=== PATIENT | female | born 1975 | race Caucasian/White ===

== ENCOUNTER → 2020-06-30 | Outpatient (CLI) | payer BC ==
[2020-06-30 11:55] LABS: Basophils % (A) 1 %; Eosinophils # (A) 0.2 k/uL (0-0.7); Eosinophils % (A) 2 %; HGB 12.5 gm/dL (11.4-16.0); Lymphocytes # (A) 2.2 k/uL (1.0-4.8); Lymphocytes % (A) 27 %; MCH 26.2 pg (25.0-35.0); MCHC 31.3 g/dL (31.0-37.0); MCV 83.7 fL (80.0-100.0); Mean Platelet Volume 7.4; Monocytes # (A) 0.4 k/uL (0-1.0); Monocytes % (A) 5 %; Neutrophils # (A) 5.4 k/uL (1.3-7.7); Neutrophils % (A) 64 %; Platelet Count 307 k/uL (150-450); RBC 4.78 m/uL (3.80-5.40); RDW 13.4 % (11.5-15.5); WBC 8.4 k/uL (3.8-10.6)
[2020-06-30 22:24] LABS: African American GFR (CKD) 120.4 (60.0-200.0); Albumin 4.4 g/dL (3.80-4.90); Albumin/Globulin Ratio 1.91 (1.60-3.17); BUN/Creat Ratio 15.71 Ratio (12.00-20.00); Calcium 9.4 mg/dL (8.7-10.3); Chol/HDL Ratio 3.92; Globulin 2.3 g/dL (1.6-3.3); LDL Cholesterol,Calculated 86.4 mg/dL (0.0-131.0); Non-African American GFR(CKD) 103.9 (60.0-200.0); Potassium 4.5 mmol/L (3.5-5.5); Total Bilirubin 0.3 mg/dL (0.2-1.2); Total Protein 6.7 g/dL (6.2-8.2); VLDL Calculation 27.6 mg/dL (5.00-40.00)
== END | disposition home or self-care (01) ==
LOC: LABWHC1 10:13
PROVIDERS: ATTEND Internal Medicine Cardiovascular Disease
DX: I10 Essential (primary) hypertension (principal); R06.02 Shortness of breath; R00.2 Palpitations
CPT/HCPCS: 36415; 80053; 80061; 83880; 84439; 84443; 85025

== ENCOUNTER → 2022-07-07 | Outpatient (CLI) | payer BC ==
[2022-07-07 18:38] LABS: ALT 18 U/L (8-44); AST 19 U/L (13-35); African American GFR (CKD) 120.4 (60.0-200.0); Albumin/Globulin Ratio 1.19 (1.60-3.17); Alkaline Phosphatase 132 U/L (41-126); BUN/Creat Ratio 20.42 Ratio (12.00-20.00); Blood Urea Nitrogen 13.7 mg/dL (9.0-27.0); Calcium 9.3 mg/dL (8.7-10.3); Carbon Dioxide 25.4 mmol/L (20.0-27.5); Chloride 101 mmol/L (96-109); Chol/HDL Ratio 4.56 Ratio; Globulin 3.4 g/dL (1.6-3.3); Glucose 203 mg/dL (70-110); LDL Cholesterol,Calculated 93.2 mg/dL (0.0-131.0); Non-African American GFR(CKD) 103.9 (60.0-200.0); Potassium 3.6 mmol/L (3.5-5.5); Sodium 137 mmol/L (135-145); Total Protein 7.3 g/dL (6.2-8.2)
== END | disposition home or self-care (01) ==
LOC: LABWHC1 10:57
PROVIDERS: ATTEND Internal Medicine Clinical Cardiac Electrophysiology
DX: I10 Essential (primary) hypertension (principal); E78.6 Lipoprotein deficiency
CPT/HCPCS: 36415; 80053; 80061; 83036; 84443

== ENCOUNTER 2022-08-11 10:26 | Inpatient (IN) | payer BC ==
--- NOTE | 2022-08-11 11:10 | ED ---
General Adult HPI - General Chief complaint: Chest Pain Stated complaint: chest pain, SOB Time Seen by Provider: 08/11/22 10:47 Source: patient, RN notes reviewed Mode of arrival: ambulatory Limitations: no limitations - History of Present Illness Initial comments: Patient is a pleasant 46-year-old female presenting to the emergency Department with chest discomfort and shortness of breath. Symptoms started just a few days ago. Patient does have cough that just started recently with mild chest congestion. Patient has been having discomfort the past couple of days. Discomfort is a proximally 6/10. Discomfort has somewhat worsened. Discomfort feels like an ache, right of midline. Patient does see cardiology for history of hypertension. No history of cardiac disease. Patient states her blood pressure has been labile at home. - Related Data Allergies Allergy/AdvReac Type Severity Reaction Status Date / Time No Known Allergies Allergy Verified 08/11/22 10:44 Review of Systems ROS Statement: Those systems with pertinent positive or pertinent negative responses have been documented in the HPI. ROS Other: All systems not noted in ROS Statement are negative. Constitutional: Denies: fever Eyes: Denies: eye pain ENT: Denies: ear pain Respiratory: Reports: as per HPI, cough, dyspnea Cardiovascular: Reports: as per HPI, chest pain Endocrine: Reports: fatigue Gastrointestinal: Denies: abdominal pain Genitourinary: Denies: dysuria Musculoskeletal: Denies: back pain Skin: Denies: rash Neurological: Denies: weakness Past Medical History Past Medical History: Diabetes Mellitus History of Any Multi-Drug Resistant Organisms: None Reported Past Surgical History: No Surgical Hx Reported Past Psychological History: No Psychological Hx Reported Smoking Status: Never smoker Past Alcohol Use History: None Reported Past Drug Use History: None Reported General Exam Limitations: no limitations General appearance: alert, in no apparent distress Head exam: Present: normocephalic Eye exam: Present: normal appearance Respiratory exam: Present: rales (Right-sided). Absent: chest wall tenderness Cardiovascular Exam: Present: regular rate, normal rhythm Expanded Peripheral pulses: 2+: Radial (R), Radial (L), Posterior Tibialis (R), Posterior Tibialis (L) GI/Abdominal exam: Present: soft. Absent: tenderness Extremities exam: Present: normal inspection. Absent: pedal edema, calf tenderness Neurological exam: Present: alert Psychiatric exam: Present: normal affect, normal mood Skin exam: Present: normal color Course Vital Signs 11/11/22 11/11/22 11/11/22 10:41 11:00 11:51 Temperature 97.4 F L Pulse Rate 96 92 92 Pulse Rate [ 92 Plastic Mixer ] Respiratory 22 20 22 Rate Blood Pressure 75/54 76/41 81/45 O2 Sat by Pulse 97 95 Oximetry - Reevaluation(s) Reevaluation #1: 08/11/22 13:06 Patient does meet criteria for severe sepsis diagnosed at 1300. Blood culture and lactic acid and IV antibiotics have all been ordered. EKG Findings - EKG Comments: EKG Findings:: Sinus rhythm rate 90. TN 134. QRS 104. QT 349. QTC 397. Normal axis. Low QRS voltage. No acute ST change. Medical Decision Making - Medical Decision Making Patient reevaluated and updated. Case was discussed in detail with Dr. Fernández, who will admit covering Dr. Dukes. - Lab Data Result diagrams: 08/11/22 11:18 08/11/22 11:18 Lab Results 08/11/22 08/11/22 08/11/22 Range/Units 11:18 11:18 11:18 WBC 23.7 H (3.8-10.6) k/uL RBC 4.37 (3.80-5.40) m/uL Hgb 12.1 (11.4-16.0) gm/dL Hct 36.1 (34.0-46.0) % MCV 82.6 (80.0-100.0) fL MCH 27.7 (25.0-35.0) pg MCHC 33.5 (31.0-37.0) g/dL RDW 13.1 (11.5-15.5) % Plt Count 231 (150-450) k/uL MPV 9.0 PT 12.0 (9.0-12.0) sec INR 1.1 (<1.2) APTT 28.4 (22.0-30.0) sec D-Dimer 3.08 H (<0.60) mg/L FEU Sodium 134 L (137-145) mmol/L Potassium 3.8 (3.5-5.1) mmol/L Chloride 100 (98-107) mmol/L Carbon Dioxide 22 (22-30) mmol/L Anion Gap 12 mmol/L BUN 41 H (7-17) mg/dL Creatinine 2.04 H (0.52-1.04) mg/dL Est GFR (CKD-EPI)AfAm 33 (>60 ml/min/1.73 sqM) Est GFR (CKD-EPI)NonAf 28 (>60 ml/min/1.73 sqM) Glucose 167 H (74-99) mg/dL Plasma Lactic Acid Aryan (0.7-2.0) mmol/L Calcium 7.9 L (8.4-10.2) mg/dL Magnesium 1.1 L (1.6-2.3) mg/dL Total Bilirubin 0.7 (0.2-1.3) mg/dL AST 27 (14-36) U/L ALT 27 (4-34) U/L Alkaline Phosphatase 171 H (38-126) U/L Troponin I (0.000-0.034) ng/mL NT-Pro-B Natriuret Pep pg/mL Total Protein 6.2 L (6.3-8.2) g/dL Albumin 3.4 L (3.5-5.0) g/dL Coronavirus (PCR) (Not Detectd) Influenza Type A RNA (Not Detectd) Influenza Type B (PCR) (Not Detectd) 08/11/22 08/11/22 08/11/22 Range/Units 11:18 11:18 11:18 WBC (3.8-10.6) k/uL RBC (3.80-5.40) m/uL Hgb (11.4-16.0) gm/dL Hct (34.0-46.0) % MCV (80.0-100.0) fL MCH (25.0-35.0) pg MCHC (31.0-37.0) g/dL RDW (11.5-15.5) % Plt Count (150-450) k/uL MPV PT (9.0-12.0) sec INR (<1.2) APTT (22.0-30.0) sec D-Dimer (<0.60) mg/L FEU Sodium (137-145) mmol/L Potassium (3.5-5.1) mmol/L Chloride (98-107) mmol/L Carbon Dioxide (22-30) mmol/L Anion Gap mmol/L BUN (7-17) mg/dL Creatinine (0.52-1.04) mg/dL Est GFR (CKD-EPI)AfAm (>60 ml/min/1.73 sqM) Est GFR (CKD-EPI)NonAf (>60 ml/min/1.73 sqM) Glucose (74-99) mg/dL Plasma Lactic Acid Aryan 3.0 H* (0.7-2.0) mmol/L Calcium (8.4-10.2) mg/dL Magnesium (1.6-2.3) mg/dL Total Bilirubin (0.2-1.3) mg/dL AST (14-36) U/L ALT (4-34) U/L Alkaline Phosphatase (38-126) U/L Troponin I <0.012 (0.000-0.034) ng/mL NT-Pro-B Natriuret Pep 1070 pg/mL Total Protein (6.3-8.2) g/dL Albumin (3.5-5.0) g/dL Coronavirus (PCR) (Not Detectd) Influenza Type A RNA (Not Detectd) Influenza Type B (PCR) (Not Detectd) 08/11/22 08/11/22 Range/Units 11:18 11:18 WBC (3.8-10.6) k/uL RBC (3.80-5.40) m/uL Hgb (11.4-16.0) gm/dL Hct (34.0-46.0) % MCV (80.0-100.0) fL MCH (25.0-35.0) pg MCHC (31.0-37.0) g/dL RDW (11.5-15.5) % Plt Count (150-450) k/uL MPV PT (9.0-12.0) sec INR (<1.2) APTT (22.0-30.0) sec D-Dimer (<0.60) mg/L FEU Sodium (137-145) mmol/L Potassium (3.5-5.1) mmol/L Chloride (98-107) mmol/L Carbon Dioxide (22-30) mmol/L Anion Gap mmol/L BUN (7-17) mg/dL Creatinine (0.52-1.04) mg/dL Est GFR (CKD-EPI)AfAm (>60 ml/min/1.73 sqM) Est GFR (CKD-EPI)NonAf (>60 ml/min/1.73 sqM) Glucose (74-99) mg/dL Plasma Lactic Acid Aryan (0.7-2.0) mmol/L Calcium (8.4-10.2) mg/dL Magnesium (1.6-2.3) mg/dL Total Bilirubin (0.2-1.3) mg/dL AST (14-36) U/L ALT (4-34) U/L Alkaline Phosphatase (38-126) U/L Troponin I (0.000-0.034) ng/mL NT-Pro-B Natriuret Pep pg/mL Total Protein (6.3-8.2) g/dL Albumin (3.5-5.0) g/dL Coronavirus (PCR) Not Detected (Not Detectd) Influenza Type A RNA Not Detected (Not Detectd) Influenza Type B (PCR) Not Detected (Not Detectd) - Radiology Data Radiology results: image reviewed (Chest x-ray read by myself reveals large right upper lobe infiltrate) Critical Care Time Critical Care Time: Yes Total Critical Care Time: 33 Disposition Clinical Impression: Pneumonia, Severe sepsis Disposition: ADMITTED IP TO THIS HOSP Is patient prescribed a controlled substance at d/c from ED?: No Referrals: Pedro Dukes MD [Primary Care Provider] - 1-2 days Time of Disposition: 13:08
[2022-08-11] MEDS: SODIUM CHLORIDE 0.9% 1,000 ML IV STA ×2 (11:15→11:57)
--- NOTE | 2022-08-11 11:44 | XR ---
EXAMINATION TYPE: XR chest 2V DATE OF EXAM: 08/11/2022 COMPARISON: NONE HISTORY: Chest pain TECHNIQUE: Frontal and lateral views of the chest are obtained. FINDINGS: Large right upper lobe infiltrate with air bronchograms. Correlate for pneumonia. Infiltrate of other etiology is not excluded and clinical correlation is advised as well as follow-up until resolution. No evidence for pneumothorax. No pleural effusion. The cardiac silhouette size is within normal limits. The osseous structures are grossly intact. IMPRESSION: 1. Large right upper lobe infiltrate with air bronchograms. Correlate for pneumonia. Infiltrate of o ther etiology is not excluded and clinical correlation is advised as well as follow-up until resoluti on.
[2022-08-11] MEDS ORDERED: SODIUM CHLORIDE 0.9% 2,000 ML IV STA (11:54)
[2022-08-11 12:21] LABS: Albumin 3.4 g/dL (3.5-5.0); Calcium 7.9 mg/dL (8.4-10.2); Magnesium 1.1 mg/dL (1.6-2.3); Potassium 3.8 mmol/L (3.5-5.1); Total Bilirubin 0.7 mg/dL (0.2-1.3); Total Protein 6.2 g/dL (6.3-8.2)
[2022-08-11 12:22] LABS: Basophils # (A) 0.1 k/uL (0-0.2); Basophils % (A) 0 %; Eosinophils # (A) 0.2 k/uL (0-0.7); Eosinophils % (A) 1 %; HCT 36.1 % (34.0-46.0); HGB 12.1 gm/dL (11.4-16.0); Lymphocytes # (A) 0.4 k/uL (1.0-4.8); Lymphocytes % (A) 2 %; MCH 27.7 pg (25.0-35.0); MCHC 33.5 g/dL (31.0-37.0); MCV 82.6 fL (80.0-100.0); Monocytes # (A) 0.4 k/uL (0-1.0); Monocytes % (A) 2 %; Neutrophils # (A) 22.6 k/uL (1.3-7.7); Neutrophils % (A) 96 %; Platelet Count 231 k/uL (150-450); RBC 4.37 m/uL (3.80-5.40); RDW 13.1 % (11.5-15.5); WBC 23.7 k/uL (3.8-10.6)
[2022-08-11 12:42] LABS: INR 1.1 (<1.2); Partial Thromboplastin Time 28.4 sec (22.0-30.0)
[2022-08-11] MEDS ORDERED: AZITHROMYCIN 500 MG in SODIUM CHLORIDE 0.9% 250 ML IVPB STA (13:09)
[2022-08-11] MEDS ORDERED: IPRATROPIUM-ALBUTEROL 3 ML NEB INHALATION PRN (13:09)
[2022-08-11] MEDS ORDERED: PNEUMONIA PROTOCOL UTILIZED 1 EACH MISC PO PRN (13:09)
[2022-08-11 13:16] LABS: RBC Morphology Normal
[2022-08-11 13:17] LABS: Toxic Vacuolation Present
[2022-08-11] MEDS: SODIUM CHLORIDE 0.9% 1,000 ML IV SCH ×2 (13:51→21:27)
[2022-08-11] MEDS ORDERED: TEMAZEPAM 15 MG CAP PO PRN (17:45)
[2022-08-11] MEDS ORDERED: NALOXONE 0.4 MG/ML 1 ML VIAL IV PRN (17:45)
[2022-08-11] MEDS ORDERED: CALCIUM CARBONATE 500 MG CHEWABLE PO PRN (17:45)
[2022-08-11] MEDS ORDERED: LACTULOSE 20 GM/30 ML CUP PO PRN (17:45)
[2022-08-11] MEDS ORDERED: ONDANSETRON 4 MG/2 ML VIAL IVP PRN (17:45)
[2022-08-11] MEDS ORDERED: LORazepam 0.5 MG TAB PO PRN (17:45)
[2022-08-11] MEDS ORDERED: DEXTROSE 50% SYRINGE 50 ML IVP PRN ×2 (17:46)
--- NOTE | 2022-08-11 17:48 | P.HPIM ---
History of Present Illness H&P Date: 08/11/22 Chief Complaint: Cough chill short of breath This is a pleasant 46-year-old patient who follows Dr. Dukes. Chronic stable medical conditions include diabetes, hypertension, depression. Patient stopped smoking 5 years ago. 2 days ago she started having pain in the chest after taking a deep breath. Progressively got worse. Became dizzy. Also started becoming short of breath. Started having significant cough but unable to expectorate. It became very short of breath. More chills. Presented to the ER. Wheezing. Unable to expectorate. No diarrhea. No muscle pain. No headaches. Nobody else sick around her. Tested negative for COVID and flu in the ER. Patient has not taken any vaccines for the same. Review of systems: GEN.: Chills decreased appetite tired EYES: None HEENT: None NECK: None RESPIRATORY: As above CARDIOVASCULAR: None GASTROINTESTINAL: None GENITOURINARY: None MUSCULOSKELETAL: None LYMPHATICS: None HEMATOLOGICAL: None PSYCHIATRY: None NEUROLOGICAL: None Past medical history to include: Diabetes, hypertension, depression Social history: Lives with her . Smoked a pack a day for 25 years stopped 5 years ago. . Works at [employer]. No alcohol. No drugs. Family history: Reviewed, noncontributory to presentation Physical examination: VITAL SIGNS: 97.4, 96, 22, 75 x 54, 97% room air GENERAL: BMI 38.4, reclining in bed, short of breath, congested cough. EYES: Pupils equal. Conjunctiva normal. HEENT: External appearance of nose and ears normal, oral cavity grossly normal. NECK: JVD not raised; masses not palpable. HEART: First and second heart sounds are normal; no edema. LUNGS: Respiratory rate increased, but able to speak in full sentences, accessory muscles of smoking, diminished breath sounds prolonged expiration cause crackles. ABDOMEN: Soft, nontender, liver spleen not palpable, no masses palpable. PSYCH: [Alert and oriented x3; mood and affect anxious l. MUSCULOSKELETAL:No Clubbing/cyanosis;muscles-grossly intact NEUROLOGICAL: Cranial nerves grossly intact; no facial asymmetry, power and sensation grossly intact. LYMPHATICS: No lymph nodes palpable in the axilla and neck INVESTIGATIONS, reviewed in the clinical context: White count 22.7 hemoglobin 12.1 platelets 231 sodium 134 percussion 3.8 BUN 41 creatinine 2.04 lactic acid 3 COVID 19 PCR/influenza type A/type B: Not detected EKG tracing personally reviewed by me-normal sinus rhythm. Chest x-ray film personally reviewed by me: Right upper lobar pneumonia Assessment and plan: -Acute severe right upper lobe pneumonia, suspect gram-negative organism, causing sepsis IV ceftriaxone -Sepsis from pneumonia IV fluids with IV ceftriaxone -Lactic acidosis from sepsis -Diabetes mellitus type 2, on oral hypoglycemic Hold metformin. Follow Accu-Cheks with sliding scale -Relative hypotension from sepsis. IV fluids -Essential hypertension, currently blood pressure running low Hold off antihypertensive. -Acute COPD exacerbation in an ex-smoker DuoNeb every 4, IV Solu-Medrol, nebulized Pulmicort -Obesity BMI 38.4 Weight loss measures IV ceftriaxone, IV fluids, hold metformin, Accu-Cheks and sliding scale, hold off antihypertensives, DuoNeb, IV Solu Medrol, nebulized Pulmicort. Subcu Lovenox. Care was discussed with the patient. Questions answered. Past Medical History Past Medical History: Diabetes Mellitus History of Any Multi-Drug Resistant Organisms: None Reported Past Surgical History: No Surgical Hx Reported Past Psychological History: No Psychological Hx Reported Smoking Status: Never smoker Past Alcohol Use History: None Reported Past Drug Use History: None Reported Medications and Allergies Home Medications Medication Instructions Recorded Confirmed Type Losartan-Hctz 50-12.5 mg [Hyzaar 1 tab PO DAILY@189908/11/22 08/11/22 History 50-12.5] Metoprolol Succinate (ER) [Toprol 25 mg PO DAILY@189908/11/22 08/11/22 History Xl] Phentermine HCl 37.5 mg PO DAILY@189908/11/22 08/11/22 History buPROPion XL [Wellbutrin XL] 300 mg PO DAILY@189908/11/22 08/11/22 History metFORMIN HCL ER [Glucophage XR] 1,000 mg PO DAILY@189908/11/22 08/11/22 History Allergies Allergy/AdvReac Type Severity Reaction Status Date / Time No Known Allergies Allergy Verified 08/11/22 14:23 Physical Exam Vitals: Vital Signs Temp Pulse Pulse Resp BP Pulse Ox 08/11/22 16:56 109 H 26 H 105/62 97 08/11/22 16:11 109 H 27 H 96/57 93 L 11/11/22 15:45 110 H 26 H 100/62 95 08/11/22 15:30 106 H 26 H 100/73 94 L 08/11/22 15:15 100 18 08/11/22 15:06 109 H 18 94 L 08/11/22 15:00 108 H 24 98/58 95 08/11/22 14:45 98.3 F 109 H 26 H 96/53 93 L 08/11/22 11:51 92 22 81/45 95 08/11/22 11:00 92 92 20 76/41 08/11/22 10:41 97.4 F L 96 22 75/54 97 Intake and Output 08/11/22 08/11/22 08/11/22 06:59 14:59 22:59 Other: Weight 98.43 kg Results CBC & Chem 7: 08/11/22 11:18 08/11/22 11:18 Labs: Abnormal Lab Results - Last 24 Hours (Table) 08/11/22 08/11/22 08/11/22 Range/Units 11:18 11:18 11:18 WBC 23.7 H (3.8-10.6) k/uL Neutrophils # 22.6 H (1.3-7.7) k/uL Lymphocytes # 0.4 L (1.0-4.8) k/uL D-Dimer 3.08 H (<0.60) mg/L FEU Sodium 134 L (137-145) mmol/L BUN 41 H (7-17) mg/dL Creatinine 2.04 H (0.52-1.04) mg/dL Glucose 167 H (74-99) mg/dL Plasma Lactic Acid Aryan (0.7-2.0) mmol/L Calcium 7.9 L (8.4-10.2) mg/dL Magnesium 1.1 L (1.6-2.3) mg/dL Alkaline Phosphatase 171 H (38-126) U/L Total Protein 6.2 L (6.3-8.2) g/dL Albumin 3.4 L (3.5-5.0) g/dL 08/11/22 Range/Units 11:18 WBC (3.8-10.6) k/uL Neutrophils # (1.3-7.7) k/uL Lymphocytes # (1.0-4.8) k/uL D-Dimer (<0.60) mg/L FEU Sodium (137-145) mmol/L BUN (7-17) mg/dL Creatinine (0.52-1.04) mg/dL Glucose (74-99) mg/dL Plasma Lactic Acid Aryan 3.0 H* (0.7-2.0) mmol/L Calcium (8.4-10.2) mg/dL Magnesium (1.6-2.3) mg/dL Alkaline Phosphatase (38-126) U/L Total Protein (6.3-8.2) g/dL Albumin (3.5-5.0) g/dL
[2022-08-11] MEDS: ENOXAPARIN 40 MG/0.4 ML SYRINGE SQ SCH (18:52)
[2022-08-11] MEDS: guaiFENesin 600 MG TABLET.ER PO SCH ×2 (18:52→21:27)
[2022-08-11] MEDS: METOPROLOL SUCCINATE (ER) 25 MG TAB.ER.24H PO SCH (18:52)
[2022-08-11] MEDS: buPROPion XL 300 MG TAB.ER.24H PO SCH (18:52)
[2022-08-11] MEDS: methylPREDNISolone SOD SUCCI 40 MG/ML 1 ML VIAL IV SCH (18:55)
[2022-08-11] MEDS ORDERED: NON FORMULARY DRUG (Phentermine Hcl [Phentermine Hcl] 37.5 MG Tablet) PO SCH (19:00)
[2022-08-11] MEDS: BUDESONIDE 1 MG/2 ML NEBU INHALATION SCH (19:10)
[2022-08-11] MEDS: IPRATROPIUM-ALBUTEROL 3 ML NEB INHALATION SCH ×2 (19:10→23:49)
[2022-08-11 20:17] LABS: Glucose,Whole Blood 177 mg/dL (70-110)
[2022-08-12] MEDS: methylPREDNISolone SOD SUCCI 40 MG/ML 1 ML VIAL IV SCH ×3 (00:18→15:22)
[2022-08-12] MEDS: IPRATROPIUM-ALBUTEROL 3 ML NEB INHALATION SCH ×6 (03:49→23:47)
[2022-08-12] MEDS: SODIUM CHLORIDE 0.9% 1,000 ML IV SCH ×4 (06:04→20:43)
[2022-08-12 06:12] LABS: Glucose,Whole Blood 280 mg/dL (70-110)
[2022-08-12] MEDS: INSULIN ASPART (NovoLOG) 100 UNIT/ML VIAL SQ SCH ×3 (06:34→16:50)
--- NOTE | 2022-08-12 07:09 | XR ---
EXAMINATION TYPE: XR chest 2V DATE OF EXAM: 08/12/2022 COMPARISON: 08/11/2022 HISTORY: Follow-up pneumonia TECHNIQUE: Frontal and lateral views of the chest are obtained. FINDINGS: Large right upper lobe airspace consolidation persists with air bronchograms. Findings likely reflect pneumonia. Follow-up until resolution is advised. No evidence for pneumothorax. No pleural effusion. The cardiac silhouette size is within normal limits. The osseous structures are grossly intact. IMPRESSION: 1. Large right upper lobe airspace consolidation persists with air bronchograms. Findings likely ref lect pneumonia. Follow-up until resolution is advised.
[2022-08-12 08:05] LABS: Basophils % (A) 0 %; Eosinophils % (A) 0 %; HCT 30.2 % (34.0-46.0); Hypochromasia Slight; Lymphocytes # (A) 0.5 k/uL (1.0-4.8); Lymphocytes % (A) 4 %; MCH 27.2 pg (25.0-35.0); MCHC 32.3 g/dL (31.0-37.0); MCV 84.3 fL (80.0-100.0); Mean Platelet Volume 9.4; Monocytes # (A) 0.3 k/uL (0-1.0); Monocytes % (A) 2 %; Neutrophils % (A) 92 %; Platelet Count 200 k/uL (150-450); RBC 3.59 m/uL (3.80-5.40); RDW 13.5 % (11.5-15.5); WBC 11.9 k/uL (3.8-10.6)
[2022-08-12 08:06] LABS: HGB 9.8 gm/dL (11.4-16.0)
[2022-08-12 08:17] LABS: Calcium 7.3 mg/dL (8.4-10.2); Potassium 3.3 mmol/L (3.5-5.1)
[2022-08-12] MEDS ORDERED: AZITHROMYCIN 500 MG TAB PO SCH (09:00)
[2022-08-12] MEDS: guaiFENesin 600 MG TABLET.ER PO SCH ×4 (09:13→20:41)
[2022-08-12] MEDS: ENOXAPARIN 40 MG/0.4 ML SYRINGE SQ SCH (09:13)
[2022-08-12] MEDS ORDERED: POTASSIUM CHLORIDE ER 20 MEQ TAB.ER PO STA (09:22)
[2022-08-12] MEDS: BUDESONIDE 1 MG/2 ML NEBU INHALATION SCH ×2 (09:27→19:32)
[2022-08-12] MEDS ORDERED: VANCOMYCIN IV PER PHARMACY 1 EACH MISC MISCELLANE PRN (09:28)
[2022-08-12] MEDS: MAGNESIUM OXIDE 400 MG TAB PO SCH ×2 (10:03→20:41)
[2022-08-12] MEDS: VANCOMYCIN 1,500 MG in SODIUM CHLORIDE 0.9% 500 ML 500 ML IVPB SCH (11:13)
[2022-08-12 11:53] LABS: Glucose,Whole Blood 345 mg/dL (70-110)
[2022-08-12] MEDS ORDERED: INSULIN DETEMIR (LEVEMIR) 100 UNIT/ML SYR SQ SCH (13:31)
--- NOTE | 2022-08-12 13:34 | P.PN ---
Progress Note - Text Progress Note Date: 08/12/22 Chief Complaint: Cough chill short of breath This is a pleasant 46-year-old patient who follows Dr. Dukes. Chronic stable medical conditions include diabetes, hypertension, depression. Patient stopped smoking 5 years ago. 2 days ago she started having pain in the chest after taking a deep breath. Progressively got worse. Became dizzy. Also started becoming short of breath. Started having significant cough but unable to expectorate. It became very short of breath. More chills. Presented to the ER. Wheezing. Unable to expectorate. No diarrhea. No muscle pain. No headaches. Nobody else sick around her. Tested negative for COVID and flu in the ER. Patient has not taken any vaccines for the same. Admitted with right upper lobe pneumonia, sepsis, acute hypoxic respiratory failure, COPD exacerbation. Started IV ceftriaxone IV Solu-Medrol bronch odilators. 08/12/2022: Sounding a bit less congested. No expectoration. The cultures positive for gram-positive cocci in clusters. IV vancomycin started. We'll order nasal swab for MRSA. Eating some. Reclining in bed Active Medications Albuterol/Ipratropium (Ipratropium-Albuterol 3 Ml Neb) 3 ml INHALATION RT-Q4H PRN PRN Reason: shortness of breath Last Admin: 08/11/22 15:05 Dose: 3 ml Albuterol/Ipratropium (Ipratropium-Albuterol 3 Ml Neb) 3 ml INHALATION RT-Q4H [facility] Last Admin: 08/12/22 12:58 Dose: 3 ml Budesonide (Budesonide 1 Mg/2 Ml Nebu) 1 mg INHALATION RT-BID [facility] Last Admin: 08/12/22 09:27 Dose: 1 mg Bupropion HCl (Bupropion Xl 300 Mg Tab.Er.24h) 300 mg PO DAILY@1900 [facility] Last Admin: 08/11/22 18:52 Dose: 300 mg Calcium Carbonate/Glycine (Calcium Carbonate 500 Mg Chewable) 1,000 mg PO Q4HR PRN PRN Reason: Dyspepsia Dextrose/Water (Dextrose 50% Syringe 50 Ml) 25 ml IVP PER PROTOCOL PRN; Protocol PRN Reason: Hypoglycemia Dextrose/Water (Dextrose 50% Syringe 50 Ml) 50 ml IVP PER PROTOCOL PRN; Protocol PRN Reason: Hypoglycemia Enoxaparin Sodium (Enoxaparin 40 Mg/0.4 Ml Syringe) 40 mg SQ DAILY [facility] Last Admin: 08/12/22 09:13 Dose: 40 mg Guaifenesin (Guaifenesin 600 Mg Tablet.Er) 600 mg PO QID [facility] Last Admin: 08/12/22 09:13 Dose: 600 mg Sodium Chloride (Saline 0.9%) 1,000 mls @ 130 mls/hr IV .Q7H42M [facility] Last Admin: 08/12/22 12:34 Dose: Not Given Ceftriaxone Sodium 2 gm/ (Sodium Chloride) 50 mls @ 100 mls/hr IVPB Q12H [facility]; Protocol Last Admin: 08/12/22 09:13 Dose: 100 mls/hr Vancomycin HCl 1,500 mg/ (Sodium Chloride) 500 mls @ 167 mls/hr IVPB Q16H [facility] Last Admin: 08/12/22 11:13 Dose: 167 mls/hr Insulin Aspart (Insulin Aspart (Novolog) 100 Unit/Ml Vial) 0 unit SQ AC-TID [facility]; Protocol Last Admin: 08/12/22 12:36 Dose: 8 unit Lactulose (Lactulose 20 Gm/30 Ml Cup) 20 gm PO DAILY PRN PRN Reason: Constipation Lorazepam (Lorazepam 0.5 Mg Tab) 0.5 mg PO Q6HR PRN PRN Reason: Anxiety Magnesium Oxide (Magnesium Oxide 400 Mg Tab) 400 mg PO BID [facility] Last Admin: 08/12/22 10:03 Dose: 400 mg Methylprednisolone Sodium Succinate (Methylprednisolone Sod Succi 40 Mg/Ml 1 Ml Vial) 40 mg IV Q8HR [facility] Last Admin: 08/12/22 09:13 Dose: 40 mg Metoprolol Succinate (Metoprolol Succinate (Er) 25 Mg Tab.Er.24h) 25 mg PO DAILY@1900 [facility] Last Admin: 08/11/22 18:52 Dose: 25 mg Miscellaneous Information (Pneumonia Protocol Utilized 1 Each Misc) 1 each PO ONCE PRN PRN Reason: Per Protocol Naloxone HCl (Naloxone 0.4 Mg/Ml 1 Ml Vial) 0.2 mg IV Q2M PRN PRN Reason: Opioid Reversal Ondansetron HCl (Ondansetron 4 Mg/2 Ml Vial) 4 mg IVP Q8HR PRN PRN Reason: Nausea And Vomiting Temazepam (Temazepam 15 Mg Cap) 15 mg PO HS PRN PRN Reason: Insomnia Past medical history to include: Diabetes, hypertension, depression Social history: Lives with her . Smoked a pack a day for 25 years stopped 5 years ago. . Works at [email or web address]. No alcohol. No drugs. Family history: Reviewed, noncontributory to presentation Physical examination: VITAL SIGNS: At 8.3, 100, 18, 10 3 x 73, 92% room air GENERAL: Reclining in bed, bit less short of breath EYES: Pupils equal. Conjunctiva normal. HEENT: External appearance of nose and ears normal, oral cavity grossly normal. NECK: JVD not raised; masses not palpable. HEART: First and second heart sounds are normal; no edema. LUNGS: Respiratory rate increased, diminished breath sounds prolonged expiration ABDOMEN: Soft, nontender, liver spleen not palpable, no masses palpable. PSYCH: [Alert and oriented x3; mood and affect anxious l. INVESTIGATIONS, reviewed in the clinical context: 08/12/2022: WBC 11.9 hemoglobin 9.8 platelets 200 potassium 3.3 BUN 24 creatinine 0.91 pro-calcitonin 3.20 White count 22.7 hemoglobin 12.1 platelets 231 sodium 134 percussion 3.8 BUN 41 creatinine 2.04 lactic acid 3 COVID 19 PCR/influenza type A/type B: Not detected EKG tracing personally reviewed by me-normal sinus rhythm. Chest x-ray film personally reviewed by me: Right upper lobar pneumonia Assessment and plan: -Acute severe right upper lobe pneumonia, suspect gram-negative organism, causing sepsis: Has not respond IV ceftriaxone -Sepsis from pneumonia, with blood cultures positive for gram-positive cocci in clusters IV fluids with IV ceftriaxone. Add IV vancomycin -Normocytic anemia Check fecal occult stool. Iron studies. -Lactic acidosis from sepsis -Diabetes mellitus type 2, on oral hypoglycemic, uncontrolled with hyperglycemia Hold metformin. Follow Accu-Cheks with sliding scale. Add Levemir 10 units sub cu daily -Relative hypotension from sepsis. IV fluids -Essential hypertension, currently blood pressure running low Hold off antihypertensive. -Acute COPD exacerbation in an ex-smoker DuoNeb every 4, IV Solu-Medrol, nebulized Pulmicort -Obesity BMI 38.4 Weight loss measures IV ceftriaxone, IV fluids,. Add IV vancomycin. Continue IV fluids. Consult ID. Advised patient to sit up on a chair. Iron studies
[2022-08-12 16:40] LABS: Glucose,Whole Blood 306 mg/dL (70-110)
[2022-08-12] MEDS: METOPROLOL SUCCINATE (ER) 25 MG TAB.ER.24H PO SCH (18:06)
[2022-08-12] MEDS: buPROPion XL 300 MG TAB.ER.24H PO SCH (18:06)
[2022-08-12 20:42] LABS: Glucose,Whole Blood 326 mg/dL (70-110)
[2022-08-12] MEDS ORDERED: INSULIN ASPART (NovoLOG) 100 UNIT/ML VIAL SQ ONE (21:36)
--- NOTE | 2022-08-12 23:47 | P.CONS ---
History of Present Illness - Reason for Consult Consult date: 08/12/22 - History of Present Illness Patient is a 46-year-old female presenting to the ER yesterday morning for evaluation of right-sided chest discomfort and shortness of breath in this patient symptom has been going on for few days before presentation to the hospital patient denies any history of any trauma or fall she has been complaining of right-sided chest pain which is mostly sharp and worse with taking a deep breath and a cough Intensity of the pain described to be almost 10 out of 10 in severity on arrival and did have some relief with the pain medication, patient also have a cough which is mild to moderate intensity occasional sputum patient denies have any nausea no vomiting no abdominal pain or any diarrhea patient on presentation to the hospital was afebrile and no fever has been recorded subsequently patient did have white count 23,000 with a left shift kidney function was normal did have elevated procalcitonin elevated lactic acid levels observed normal influenza and robles PCR was negative patient did have blood cultures drawn coming back positive with gram-positive cocci vancomycin was added infectious disease was consulted for further management of antibiotic therapy patient did have a chest x-ray with large right upper lobe infiltrate related Bronchophan concerning for pneumonia Past Medical History Past Medical History: Diabetes Mellitus, Hypertension History of Any Multi-Drug Resistant Organisms: None Reported Past Surgical History: Cholecystectomy, Tonsillectomy Additional Past Surgical History / Comment(s): foot surgery x5 Past Anesthesia/Blood Transfusion Reactions: No Reported Reaction Past Psychological History: No Psychological Hx Reported Smoking Status: Never smoker Past Alcohol Use History: None Reported Past Drug Use History: None Reported - Past Family History Mother Family Medical History: Congestive Heart Failure (CHF), Diabetes Mellitus Father Family Medical History: AICD/Pacemaker, CVA/TIA, Diabetes Mellitus Medications and Allergies Home Medications Medication Instructions Recorded Confirmed Type Losartan-Hctz 50-12.5 mg [Hyzaar 1 tab PO DAILY@189908/11/22 08/11/22 History 50-12.5] Metoprolol Succinate (ER) [Toprol 25 mg PO DAILY@189908/11/22 08/11/22 History Xl] Phentermine HCl 37.5 mg PO DAILY@189908/11/22 08/11/22 History buPROPion XL [Wellbutrin XL] 300 mg PO DAILY@189908/11/22 08/11/22 History metFORMIN HCL ER [Glucophage XR] 1,000 mg PO DAILY@1900 08/11/22 08/11/22 History Allergies Allergy/AdvReac Type Severity Reaction Status Date / Time No Known Allergies Allergy Verified 08/11/22 14:23 Physical Exam Vitals: Vital Signs Temp Pulse Pulse Resp BP BP Pulse Ox 08/12/22 13:10 100 08/12/22 12:58 100 08/12/22 12:00 98.3 F 100 18 113/73 92 L 08/12/22 09:45 98 08/12/22 09:27 97 95 08/12/22 08:05 98 F 93 18 105/67 94 L 08/12/22 04:00 98.5 F 104 H 98 18 101/66 94 L 08/12/22 03:49 101 H 08/12/22 02:00 18 08/12/22 00:00 98.5 F 104 H 102 H 18 101/58 94 L 08/11/22 23:49 106 H 08/11/22 20:00 94 18 08/11/22 19:58 98.5 F 112 H 18 98/62 95 08/11/22 19:22 112 H 08/11/22 19:10 111 H 08/11/22 18:25 98.6 F 112 H 18 109/70 94 L 08/11/22 17:43 98.7 F 08/11/22 17:41 113 H 24 106/64 95 08/11/22 17:38 108 H 22 96/54 96 08/11/22 16:56 109 H 26 H 105/62 97 08/11/22 16:11 109 H 27 H 96/57 93 L 08/11/22 15:45 110 H 26 H 100/62 95 08/11/22 15:30 106 H 26 H 100/73 94 L 08/11/22 15:15 100 18 08/11/22 15:06 109 H 18 94 L 08/11/22 15:00 108 H 24 98/58 95 08/11/22 14:45 98.3 F 109 H 26 H 96/53 93 L Intake and Output 08/11/22 08/12/22 08/12/22 22:59 06:59 14:59 Intake Total 1380 Balance 1380 Intake: Intake, IV Titration 1200 Amount Sodium Chloride 0.9% 1, 650 000 ml @ 130 mls/hr IV . Q7H42M [facility] Rx#:[id number] Vancomycin 1,500 mg In 500 Sodium Chloride 0.9% 500 ml 500 ml @ 167 mls/hr IVPB Q16H [facility] Rx#: [id number] cefTRIAXone 2 gm In 50 Sodium Chloride 0.9% 50 ml @ 100 mls/hr IVPB Q12H [facility] Rx#:[id number] Oral 180 Other: Voiding Method Toilet Toilet # Voids 2 1 Weight 98.43 kg Results CBC & Chem 7: 08/12/22 07:22 08/12/22 07:22 Labs: Abnormal Lab Results - Last 24 Hours (Table) 08/11/22 08/12/22 08/12/22 Range/Units 20:16 06:10 07:22 WBC (3.8-10.6) k/uL RBC (3.80-5.40) m/uL Hgb (11.4-16.0) gm/dL Hct (34.0-46.0) % Neutrophils # (1.3-7.7) k/uL Lymphocytes # (1.0-4.8) k/uL Potassium (3.5-5.1) mmol/L BUN (7-17) mg/dL Glucose (74-99) mg/dL POC Glucose (mg/dL) 177 H 280 H (70-110) mg/dL Calcium (8.4-10.2) mg/dL Procalcitonin 3.20 H (0.02-0.09) ng/mL 08/12/22 08/12/22 08/12/22 Range/Units 07:22 07:22 11:51 WBC 11.9 H (3.8-10.6) k/uL RBC 3.59 L (3.80-5.40) m/uL Hgb 9.8 L D (11.4-16.0) gm/dL Hct 30.2 L (34.0-46.0) % Neutrophils # 11.0 H (1.3-7.7) k/uL Lymphocytes # 0.5 L (1.0-4.8) k/uL Potassium 3.3 L (3.5-5.1) mmol/L BUN 24 H (7-17) mg/dL Glucose 289 H (74-99) mg/dL POC Glucose (mg/dL) 345 H (70-110) mg/dL Calcium 7.3 L (8.4-10.2) mg/dL Procalcitonin (0.02-0.09) ng/mL Microbiology - Last 24 Hours (Table) 08/11/22 12:05 Blood Culture Gram Stain - Preliminary Blood 08/11/22 12:05 Blood Culture - Final Blood Assessment and Plan Plan: 1patient with gram-positive bacteremia in this patient presented to hospital with right-sided chest pain cough elevated white count with evidence of right- sided pneumonia likely strep pneumo and source is pneumonia. 2blood cultures will be repeated document clearance of bacteremia 3-patient to continue with the vancomycin and Rocephin however discontinue Zithromax 4-obtain a sputum for gram stain and culture We will follow on clinical condition and cultures to further adjust medication if needed Thank you for this consultation will follow this patient along with you
[2022-08-13] MEDS: methylPREDNISolone SOD SUCCI 40 MG/ML 1 ML VIAL IV SCH ×3 (00:08→16:27)
[2022-08-13] MEDS: VANCOMYCIN 1,500 MG in SODIUM CHLORIDE 0.9% 500 ML 500 ML IVPB SCH (02:00)
[2022-08-13] MEDS: IPRATROPIUM-ALBUTEROL 3 ML NEB INHALATION SCH ×6 (03:25→23:29)
[2022-08-13] MEDS: SODIUM CHLORIDE 0.9% 1,000 ML IV SCH ×3 (04:57→13:41)
[2022-08-13 05:54] LABS: Glucose,Whole Blood 225 mg/dL (70-110)
[2022-08-13] MEDS: INSULIN DETEMIR (LEVEMIR) 100 UNIT/ML SYR SQ SCH (06:23)
[2022-08-13] MEDS: INSULIN ASPART (NovoLOG) 100 UNIT/ML VIAL SQ SCH ×3 (06:24→17:18)
[2022-08-13] MEDS: BUDESONIDE 1 MG/2 ML NEBU INHALATION SCH ×2 (07:45→19:42)
[2022-08-13 09:18] LABS: African American GFR (CKD) >90 (>60 ml/min/1.73 sqM); Non-African American GFR(CKD) >90 (>60 ml/min/1.73 sqM)
[2022-08-13] MEDS: guaiFENesin 600 MG TABLET.ER PO SCH ×4 (09:44→20:21)
[2022-08-13] MEDS: ENOXAPARIN 40 MG/0.4 ML SYRINGE SQ SCH (09:44)
[2022-08-13] MEDS: MAGNESIUM OXIDE 400 MG TAB PO SCH ×2 (09:44→20:21)
[2022-08-13 11:22] LABS: % Iron Saturation 27.32 (12.00-45.00); Iron 72 ug/dL (50-170); Total Iron Binding Capacity 263 ug/dL (228-460)
[2022-08-13 11:54] LABS: Glucose,Whole Blood 254 mg/dL (70-110)
[2022-08-13] MEDS ORDERED: LACTULOSE 20 GM/30 ML CUP PO ONE (12:08)
[2022-08-13] MEDS ORDERED: VANCOMYCIN 1,500 MG in SODIUM CHLORIDE 0.9% 500 ML 500 ML IVPB SCH (14:00)
--- NOTE | 2022-08-13 15:45 | P.PN ---
Progress Note - Text Progress Note Date: 08/13/22 Chief Complaint: Cough chill short of breath This is a pleasant 46-year-old patient who follows Dr. Dukes. Chronic stable medical conditions include diabetes, hypertension, depression. Patient stopped smoking 5 years ago. 2 days ago she started having pain in the chest after taking a deep breath. Progressively got worse. Became dizzy. Also started becoming short of breath. Started having significant cough but unable to expectorate. It became very short of breath. More chills. Presented to the ER. Wheezing. Unable to expectorate. No diarrhea. No muscle pain. No headaches. Nobody else sick around her. Tested negative for COVID and flu in the ER. Patient has not taken any vaccines for the same. Admitted with right upper lobe pneumonia, sepsis, acute hypoxic respiratory failure, COPD exacerbation. Started IV ceftriaxone IV Solu-Medrol bronch odilators. 08/12/2022: Sounding a bit less congested. No expectoration. The cultures positive for gram-positive cocci in clusters. IV vancomycin started. We'll order nasal swab for MRSA. Eating some. Reclining in bed 08/13/2022: Up in a chair. Decreased cough. No expectoration. Feeling better. Appetite improving. Blood culture showing contamination. DC vancomycin. Wheezing better. Pulse ox better. Active Medications Albuterol/Ipratropium (Ipratropium-Albuterol 3 Ml Neb) 3 ml INHALATION RT-Q4H PRN PRN Reason: shortness of breath Last Admin: 08/11/22 15:05 Dose: 3 ml Albuterol/Ipratropium (Ipratropium-Albuterol 3 Ml Neb) 3 ml INHALATION RT-Q4H [facility] Last Admin: 08/13/22 11:39 Dose: 3 ml Budesonide (Budesonide 1 Mg/2 Ml Nebu) 1 mg INHALATION RT-BID [facility] Last Admin: 08/13/22 07:45 Dose: 1 mg Bupropion HCl (Bupropion Xl 300 Mg Tab.Er.24h) 300 mg PO DAILY@1900 [facility] Last Admin: 08/12/22 18:06 Dose: 300 mg Calcium Carbonate/Glycine (Calcium Carbonate 500 Mg Chewable) 1,000 mg PO Q4HR PRN PRN Reason: Dyspepsia Dextrose/Water (Dextrose 50% Syringe 50 Ml) 25 ml IVP PER PROTOCOL PRN; Protocol PRN Reason: Hypoglycemia Dextrose/Water (Dextrose 50% Syringe 50 Ml) 50 ml IVP PER PROTOCOL PRN; Protocol PRN Reason: Hypoglycemia Enoxaparin Sodium (Enoxaparin 40 Mg/0.4 Ml Syringe) 40 mg SQ DAILY [facility] Last Admin: 08/13/22 09:44 Dose: 40 mg Guaifenesin (Guaifenesin 600 Mg Tablet.Er) 600 mg PO QID [facility] Last Admin: 08/13/22 13:39 Dose: 600 mg Sodium Chloride (Saline 0.9%) 1,000 mls @ 130 mls/hr IV .Q7H42M [facility] Last Admin: 08/13/22 13:41 Dose: 130 mls/hr Ceftriaxone Sodium 2 gm/ (Sodium Chloride) 50 mls @ 100 mls/hr IVPB Q12H [facility]; Protocol Last Admin: 08/13/22 09:43 Dose: 100 mls/hr Insulin Aspart (Insulin Aspart (Novolog) 100 Unit/Ml Vial) 0 unit SQ AC-TID [facility]; Protocol Last Admin: 08/13/22 12:30 Dose: 6 unit Insulin Detemir (Insulin Detemir (Levemir) 100 Unit/Ml Syr) 15 unit SQ DAILY@0700 [facility] Last Admin: 08/13/22 06:23 Dose: 15 unit Lactulose (Lactulose 20 Gm/30 Ml Cup) 20 gm PO DAILY PRN PRN Reason: Constipation Lorazepam (Lorazepam 0.5 Mg Tab) 0.5 mg PO Q6HR PRN PRN Reason: Anxiety Magnesium Oxide (Magnesium Oxide 400 Mg Tab) 400 mg PO BID [facility] Last Admin: 08/13/22 09:44 Dose: 400 mg Methylprednisolone Sodium Succinate (Methylprednisolone Sod Succi 40 Mg/Ml 1 Ml Vial) 40 mg IV Q8HR [facility] Last Admin: 08/13/22 09:44 Dose: 40 mg Metoprolol Succinate (Metoprolol Succinate (Er) 25 Mg Tab.Er.24h) 25 mg PO DAILY@1900 [facility] Last Admin: 08/12/22 18:06 Dose: 25 mg Miscellaneous Information (Pneumonia Protocol Utilized 1 Each Misc) 1 each PO ONCE PRN PRN Reason: Per Protocol Naloxone HCl (Naloxone 0.4 Mg/Ml 1 Ml Vial) 0.2 mg IV Q2M PRN PRN Reason: Opioid Reversal Ondansetron HCl (Ondansetron 4 Mg/2 Ml Vial) 4 mg IVP Q8HR PRN PRN Reason: Nausea And Vomiting Temazepam (Temazepam 15 Mg Cap) 15 mg PO HS PRN PRN Reason: Insomnia Last Admin: 08/13/22 00:08 Dose: 15 mg Past medical history to include: Diabetes, hypertension, depression Social history: Lives with her . Smoked a pack a day for 25 years stopped 5 years ago. . Works at [employer]. No alcohol. No drugs. Family history: Reviewed, noncontributory to presentation Physical examination: VITAL SIGNS: 98.2, 90, 18, 151 bun 90, 95% room air GENERAL: Reclining in chair, breathing better EYES: Pupils equal. Conjunctiva normal. HEENT: External appearance of nose and ears normal, oral cavity grossly normal. NECK: JVD not raised; masses not palpable. HEART: First and second heart sounds are normal; no edema. LUNGS: Respiratory rate normal, diminished breath sounds ABDOMEN: Soft, nontender, liver spleen not palpable, no masses palpable. PSYCH: [Alert and oriented x3; mood and affect anxious l. INVESTIGATIONS, reviewed in the clinical context: 08/13/2022: Creatinine 0.68 iron 72 TIBC 263 transferred 188 ferritin 424 08/12/2022: WBC 11.9 hemoglobin 9.8 platelets 200 potassium 3.3 BUN 24 creatinine 0.91 pro-calcitonin 3.20 White count 22.7 hemoglobin 12.1 platelets 231 sodium 134 percussion 3.8 BUN 41 creatinine 2.04 lactic acid 3 COVID 19 PCR/influenza type A/type B: Not detected EKG tracing personally reviewed by me-normal sinus rhythm. Chest x-ray film personally reviewed by me: Right upper lobar pneumonia Assessment and plan: -Acute severe right upper lobe pneumonia, suspect gram-negative organism, causing sepsis: Better IV ceftriaxone -Sepsis from pneumonia, better IV fluids with IV ceftriaxone. -Blood cultures positive with contamination DC vancomycin -Normocytic anemia from iron deficient Check fecal occult stool. Iron deficient -Lactic acidosis from sepsis -Diabetes mellitus type 2, on oral hypoglycemic, uncontrolled with hyperglycemia Hold metformin. Follow Accu-Cheks with sliding scale. Add Levemir 10 units subcu daily -Relative hypotension from sepsis. IV fluids -Essential hypertension, currently blood pressure running low Hold off antihypertensive. -Acute COPD exacerbation in an ex-smoker DuoNeb every 4, IV [id number] to oral prednisone tomorrow, nebulized Pulmicort -Obesity BMI 38.4 Weight loss measures IV ceftriaxone, IV fluids,. DC vancomycin. Continue IV fluids. Change IV Solu-Medrol to by mouth in the morning. Repeat procalcitonin. Increase activity. Doing better.
[2022-08-13 16:57] LABS: Glucose,Whole Blood 263 mg/dL (70-110)
[2022-08-13 20:07] LABS: Glucose,Whole Blood 327 mg/dL (70-110)
[2022-08-13] MEDS: METOPROLOL SUCCINATE (ER) 25 MG TAB.ER.24H PO SCH (20:21)
[2022-08-13] MEDS: buPROPion XL 300 MG TAB.ER.24H PO SCH (20:21)
[2022-08-13] MEDS ORDERED: INSULIN ASPART (NovoLOG) 100 UNIT/ML VIAL SQ ONE (20:46)
[2022-08-14] MEDS: IPRATROPIUM-ALBUTEROL 3 ML NEB INHALATION SCH ×3 (03:58→11:07)
[2022-08-14 06:07] LABS: Glucose,Whole Blood 252 mg/dL (70-110)
[2022-08-14] MEDS: INSULIN DETEMIR (LEVEMIR) 100 UNIT/ML SYR SQ SCH (06:25)
[2022-08-14] MEDS: INSULIN ASPART (NovoLOG) 100 UNIT/ML VIAL SQ SCH (06:26)
[2022-08-14] MEDS: SODIUM CHLORIDE 0.9% 1,000 ML IV SCH (06:28)
[2022-08-14 06:30] LABS: African American GFR (CKD) >90 (>60 ml/min/1.73 sqM); Non-African American GFR(CKD) >90 (>60 ml/min/1.73 sqM)
[2022-08-14] MEDS: BUDESONIDE 1 MG/2 ML NEBU INHALATION SCH ×2 (07:20→07:30)
[2022-08-14 08:36] VITALS: BP 122/76; RESP 18; TEMP 97.7
--- NOTE | 2022-08-14 08:36 | P.PN ---
Subjective Progress Note Date: 08/13/22 Principal diagnosis: Pneumonia and bacteremia Patient is a 46-year-old female presenting to the hospital with right- sided chest pain and cough has been diagnosed with a right-sided pneumonia subsequently blood cultures came back positive which have not been finalized as staph epi. On today's evaluation and that is 08/13/2022, the patient denies having any fever or chills, the patient right-sided chest pain has decreased in intensity, the patient continued to have a cough nonproductive of any sputum no nausea no vomiting no abdominal pain and no diarrhea Objective - Vital Signs Vital signs: Vital Signs Temp 97.5 F L 08/13/22 07:39 Pulse 84 08/13/22 11:51 Resp 18 08/13/22 07:39 BP 130/82 08/13/22 07:39 Pulse Ox 94 L 08/13/22 07:39 FiO2 Intake & Output 08/12/22 08/13/22 08/13/22 18:59 06:59 18:59 Intake Total 1740 240 Balance 1740 240 Intake: Intake, IV Titration 1200 Amount Sodium Chloride 0.9% 1, 650 000 ml @ 130 mls/hr IV . Q7H42M [facility] Rx#:[id number] Vancomycin 1,500 mg In 500 Sodium Chloride 0.9% 500 ml 500 ml @ 167 mls/hr IVPB Q16H [facility] Rx#: [id number] cefTRIAXone 2 gm In 50 Sodium Chloride 0.9% 50 ml @ 100 mls/hr IVPB Q12H [facility] Rx#:[id number] Oral 540 240 Other: Voiding Method Toilet Toilet # Voids 1 - Exam GENERAL DESCRIPTION: A middle-age female lying in bed in no distress RESPIRATORY SYSTEM: Unlabored breathing , decreased breath sounds at bases HEART: S1 S2 regular rate and rhythm , ABDOMEN: Soft , no tenderness EXTREMITIES: No edema feet - Labs CBC & Chem 7: 08/12/22 07:22 08/14/22 05:29 Labs: Abnormal Lab Results - Last 24 Hours (Table) 08/12/22 08/12/22 08/13/22 Range/Units 16:39 20:40 05:53 POC Glucose (mg/dL) 306 H 326 H 225 H (70-110) mg/dL Transferrin (204.0-354.0) mg/dL Ferritin (10.0-291.0) ng/mL 08/13/22 08/13/22 Range/Units 08:17 11:43 POC Glucose (mg/dL) 254 H (70-110) mg/dL Transferrin 188.0 L (204.0-354.0) mg/dL Ferritin 424.0 H (10.0-291.0) ng/mL Microbiology - Last 24 Hours (Table) 08/11/22 12:05 Blood Culture Gram Stain - Final Blood Blood Culture - Final Staphylococcus epidermidis 08/12/22 14:10 Nasal Screen MRSA/MSSA - Preliminary Nasal Swab 08/11/22 12:10 Blood Culture - Preliminary Blood No Growth after 24 hours 08/11/22 12:05 Blood Culture - Final Blood Assessment and Plan (1) Pneumonia Current Visit: Yes Status: Acute Code(s): J18.9 - PNEUMONIA, UNSPECIFIED ORGANISM SNOMED Code(s): 858981531 Plan: 1patient with gram-positive bacteremia in this patient presented to hospital with right-sided chest pain cough elevated white count with evidence of right- sided pneumonia likely strep pneumo however the blood culture now has been finalized as coagulase negative staph likely skin contamination 2blood cultures has been repeated document clearance of bacteremia 3-patient to continue with the Rocephin however discontinue vancomycin 4-obtain a sputum for gram stain and culture Time with Patient: Less than 30
[2022-08-14] MEDS ORDERED: predniSONE 20 MG TAB PO SCH (09:00)
[2022-08-14] MEDS: MAGNESIUM OXIDE 400 MG TAB PO SCH (09:34)
[2022-08-14] MEDS: guaiFENesin 600 MG TABLET.ER PO SCH (09:34)
[2022-08-14] MEDS: ENOXAPARIN 40 MG/0.4 ML SYRINGE SQ SCH (09:36)
[2022-08-14 11:20] VITALS: PULSE 75
--- NOTE | 2022-08-14 15:56 | P.DS ---
Providers Date of admission: 08/11/22 13:09 Expected date of discharge: 08/14/22 Attending physician: Jay Fernández Consults: 08/12/22 09:22 Consult Physician Routine Consulting Provider: Steve Walker Consult Reason/Comments: Blood culture resulted gram positive cocci in clusters Do you want consulting provider notified?: Yes Primary care physician: Pedro Dukes [facility] Course: Chief Complaint: Cough chill short of breath This is a pleasant 46-year-old patient who follows Dr. Dukes. Chronic stable medical conditions include diabetes, hypertension, depression. Patient stopped smoking 5 years ago. 2 days ago she started having pain in the chest after taking a deep breath. Progressively got worse. Became dizzy. Also started becoming short of breath. Started having significant cough but unable to expectorate. It became very short of breath. More chills. Presented to the ER. Wheezing. Unable to expectorate. No diarrhea. No muscle pain. No headaches. Nobody else sick around her. Tested negative for COVID and flu in the ER. Patient has not taken any vaccines for the same. Admitted with right upper lobe pneumonia, sepsis, acute hypoxic respiratory failure, COPD exacerbation. Started IV ceftriaxone IV Solu-Medrol bronchodilators. 08/12/2022: Sounding a bit less congested. No expectoration. The cultures positive for gram-positive cocci in clusters. IV vancomycin started. We'll order nasal swab for MRSA. Eating some. Reclining in bed 08/13/2022: Up in a chair. Decreased cough. No expectoration. Feeling better. Appetite improving. Blood culture showing contamination. DC vancomycin. Wheezing better. Pulse ox better. August 14: Patient doing well. No sputum. Breathing much improved. We will discharge on Symbicort. Complete antibiotic course of oral Ceftin. Discussed with patient about following up with Dr. Yi media developer to further workup the pneumonia patch as outpatient. Questions answered Discussion and discharge planning more than 35 minutes Past medical history to include: Diabetes, hypertension, depression Social history: Lives with her . Smoked a pack a day for 25 years stopped 5 years ago. . Works at [employer]. No alcohol. No drugs. Family history: Reviewed, noncontributory to presentation Physical examination: VITAL SIGNS: 97.7, 81, 90, 18, 122.76, 96% room air GENERAL: Reclining in chair, comfortable EYES: Pupils equal. Conjunctiva normal. HEENT: External appearance of nose and ears normal, oral cavity grossly normal. NECK: JVD not raised; masses not palpable. HEART: First and second heart sounds are normal; no edema. LUNGS: Respiratory rate normal, diminished breath sounds ABDOMEN: Soft, nontender, liver spleen not palpable, no masses palpable. PSYCH: [Alert and oriented x3; mood and affect normal INVESTIGATIONS, reviewed in the clinical context: August 14: Pro-calcitonin 0.99 08/13/2022: Creatinine 0.68 iron 72 TIBC 263 transferred 188 ferritin 424 08/12/2022: WBC 11.9 hemoglobin 9.8 platelets 200 potassium 3.3 BUN 24 creatinine 0.91 pro-calcitonin 3.20 White count 22.7 hemoglobin 12.1 platelets 231 sodium 134 percussion 3.8 BUN 41 creatinine 2.04 lactic acid 3 COVID 19 PCR/influenza type A/type B: Not detected EKG tracing personally reviewed by me-normal sinus rhythm. Chest x-ray film personally reviewed by me: Right upper lobar pneumonia Assessment and plan: -Acute severe right upper lobe pneumonia, suspect gram-negative organism, causing sepsis: Better IV ceftriaxone. Ceftin 500 mg twice a day for 7 days -Sepsis from pneumonia, better IV fluids with IV ceftriaxone. -Blood cultures positive with contamination DC vancomycin -Normocytic anemia from iron deficient . Iron deficient. Further workup outpatient with PCP -Lactic acidosis from sepsis -Diabetes mellitus type 2, on oral hypoglycemic, uncontrolled with hyperglycemia Hold metformin. Follow Accu-Cheks with sliding scale. -Relative hypotension from sepsis. IV fluids -Essential hypertension, currently blood pressure running low Hold off antihypertensive. -Acute COPD exacerbation in an ex-smoker: Better DuoNeb every 4, IV [id number] to oral prednisone tomorrow, nebulized Pulmicort Discharge in prednisone taper, Symbicort -Obesity BMI 38.4 Weight loss measures Disposition: Home Plan - Discharge Summary Discharge Rx Participant: No New Discharge Prescriptions: New cefUROXime axetiL [Ceftin] 500 mg PO BID #14 tab Budesonide/Formoterol Fumarate [Symbicort 160-4.5 Mcg Inhaler] 1 puff INHALATION BID #10.2 gm Albuterol Sulfate [Albuterol Sulfate Hfa] 1 puff PO Q4-6H #8.5 gm predniSONE 10 mg PO DAILY #30 tab Continue metFORMIN HCL ER [Glucophage XR] 1,000 mg PO DAILY@1899 Metoprolol Succinate (ER) [Toprol XL] 25 mg PO DAILY@1899 buPROPion XL [Wellbutrin XL] 300 mg PO DAILY@1899 Phentermine HCl 37.5 mg PO DAILY@1899 No Action Losartan-Hctz 50-12.5 mg [Hyzaar 50-12.5] 1 tab PO DAILY@1899 Discharge Medication List Losartan-Hctz 50-12.5 mg [Hyzaar 50-12.5] 1 tab PO DAILY@189908/11/22 [History] Metoprolol Succinate (ER) [Toprol XL] 25 mg PO DAILY@189908/11/22 [History] Phentermine HCl 37.5 mg PO DAILY@189908/11/22 [History] buPROPion XL [Wellbutrin XL] 300 mg PO DAILY@189908/11/22 [History] metFORMIN HCL ER [Glucophage XR] 1,000 mg PO DAILY@189908/11/22 [History] Albuterol Sulfate [Albuterol Sulfate Hfa] 1 puff PO Q4-6H #8.5 gm 08/14/22 [Rx] Budesonide/Formoterol Fumarate [Symbicort 160-4.5 Mcg Inhaler] 1 puff INHALATION BID #10.2 gm 08/14/22 [Rx] cefUROXime axetiL [Ceftin] 500 mg PO BID #14 tab 08/14/22 [Rx] predniSONE 10 mg PO DAILY #30 tab 08/14/22 [Rx] Follow up Appointment(s)/Referral(s): Laisha Yi MD [STAFF PHYSICIAN] - 09/14/22 9:30 am Pedro Dukes MD [Primary Care Provider] - 08/17/22 1:00 pm (August 17 1:00) Patient Instructions/Handouts: Cefuroxime (By mouth), Albuterol (By breathing), Prednisone (By mouth), Budesonide/Formoterol (By breathing), Sepsis (DC), Pneumonia (DC) Discharge/Stand Alone Forms: Work/School Release Discharge Disposition: HOME SELF-CARE
== END 2022-08-14 11:37 | disposition home or self-care (01) | DRG 871 ==
LOC: EC 10:26 → 3SCARD 13:09
PROVIDERS: ADMIT Hospitalist; ATTEND Hospitalist
DX: A41.59 Other Gram-negative sepsis (principal); J15.6 Pneumonia due to other Gram-negative bacteria; J96.01 Acute respiratory failure with hypoxia; E87.20 Acidosis, unspecified; J44.0 Chronic obstructive pulmonary disease with (acute) lower respiratory infection; J44.1 Chronic obstructive pulmonary disease with (acute) exacerbation; R65.20 Severe sepsis without septic shock; Z87.891 Personal history of nicotine dependence; D50.9 Iron deficiency anemia, unspecified; E11.65 Type 2 diabetes mellitus with hyperglycemia; E66.9 Obesity, unspecified; F32.A Depression, unspecified; F41.9 Anxiety disorder, unspecified; G47.00 Insomnia, unspecified; I10 Essential (primary) hypertension; K59.00 Constipation, unspecified; Z20.822 Contact with and (suspected) exposure to COVID-19; Z28.310 Unvaccinated for COVID-19; Z28.21 Immunization not carried out because of patient refusal; I95.9 Hypotension, unspecified; Z68.38 Body mass index [BMI] 38.0-38.9, adult; Z79.899 Other long term (current) drug therapy; Z82.3 Family history of stroke; Z82.49 Family history of ischemic heart disease and other diseases of the circulatory system; Z83.3 Family history of diabetes mellitus; Z71.3 Dietary counseling and surveillance
CPT/HCPCS: 36415; 71046; 80048; 80053; 82565; 82728; 83540; 83550; 83605; 83735; 83880; 84145; 84484; 85025; 85379; 85610; 85730; 87040; 87070; 87502; 87635; 93005; 94640; 94760; 96361; 96365; 96366; 96367; 99291